=== PATIENT | male | born 1995 | race Caucasian/White ===

== ENCOUNTER 2024-06-17 13:09 | Emergency (ER) | payer MEDICAID ==
[~2024-06-17] VITALS: Ht 172.7 cm; Wt 81.6 kg
[2024-06-17 13:11] VITALS: O2SAT 99
[2024-06-17] MEDS: LORAZEPAM 2MG/ML INJ IM ONE (13:40)
[2024-06-17 13:56] LABS: BASOPHILS % 0.7 % (0.0-2.0); EOSINOPHILS % 0.3 % (0.0-5.0); HEMATOCRIT. 47.4 % (42.0-52.0); HEMOGLOBIN. 15.7 g/dL (14.0-18.0); LYMPHOCYTES % 39.1 % (20.0-50.0); MEAN CORPUSCULAR HEMOGLOBIN 28.3 pg (28.0-32.0); MEAN CORPUSCULAR HGB CONC 33.1 g/dL (31.0-37.0); MEAN CORPUSCULAR VOLUME 85.4 fL (80.0-94.0); MEAN PLATELET VOLUME 8.9 fl (7.4-10.4); MONOCYTES % 7.2 % (2.0-8.0); NEUTROPHILS % 52.7 % (40.0-76.0); PLATELET 308 x1000/uL (130-400); RED BLOOD CELL COUNT 5.55 mill/uL (4.7-6.1); RED CELL DISTRIBUTION WIDTH 14.1 % (11.6-14.6); WHITE BLOOD COUNT 12.1 x1000/uL (4.5-11.0)
[2024-06-17 14:03] LABS: CARBON DIOXIDE 22 mEq/L (21-32); CHLORIDE 102 mEq/L (98-107); POTASSIUM 3.1 mEq/L (3.5-5.1); SODIUM 140 mEq/L (136-145)
[2024-06-17 14:04] LABS: CALCIUM 9.8 mg/dL (8.7-10.4)
[2024-06-17] MEDS: LORAZEPAM 2MG/ML INJ IV ONE (14:05)
[2024-06-17 14:09] LABS: CREATININE 1.1 mg/dL (0.6-1.3); GLUCOSE 143 mg/dL (70-105); UREA NITROGEN BLOOD 11 mg/dL (9-23)
[2024-06-17] MEDS: ONDANSETRON HCL 4MG/2ML INJ IV STA (14:44)
[2024-06-17 15:00] LABS: TROPONIN I HIGH SENSITIVITY < 4 ng/L (3.0-53)
[2024-06-17 17:58] VITALS: BP 136/89; PULSE 98; RESP 16; TEMP 36.7; O2SAT 99
== END 2024-06-17 18:00 | disposition home or self-care (01) ==
LOC: ER 13:09
DX: F15.10 Other stimulant abuse, uncomplicated (principal)
CPT/HCPCS: 99285; 96374; 71045; 96375; 80048; 85025; 84484; 36415; 93005; 96372; J2060; J2405